=== PATIENT | female | born 1990 | race Hispanic/Latino ===

== ENCOUNTER 2017-12-31 19:27 | Emergency (ER) | payer MEDICAID | END 2017-12-31 19:51 | disposition left against medical advice (07) | LOC: MADERS 19:27 | DX: Z53.21 Procedure and treatment not carried out due to patient leaving prior to being seen by health care provider (principal) ==

== ENCOUNTER 2024-07-23 23:20 | Emergency (ER) | payer SELFPAY | END 2024-07-24 01:03 | disposition short-term general hospital (02) | LOC: MADERS 23:20 | DX: O99.891 Other specified diseases and conditions complicating pregnancy (principal); R10.33 Periumbilical pain; Z3A.29 29 weeks gestation of pregnancy | CPT/HCPCS: 99284 ==